=== PATIENT | female | born 1945 | race Caucasian/White ===

== ENCOUNTER → 2018-04-23 | Outpatient (CLI) | payer OTHER ==
[~2018-04-23] MED LIST: REGADENOSON 0.4 MG/5 ML SYRINGE ONE
== END | disposition home or self-care (01) ==
LOC: CFH 08:07
PROVIDERS: ATTEND Family Medicine
DX: Z01.818 Encounter for other preprocedural examination (principal); I25.9 Chronic ischemic heart disease, unspecified; I47.1 Supraventricular tachycardia
CPT/HCPCS: 78452; 93017; A9502; J2785